=== PATIENT | male | born 1985 | race Caucasian/White ===

== ENCOUNTER 2016-12-01 16:20 | Emergency (ER) | payer SELFPAY ==
[~2016-12-01] VITALS: Ht 185.4 cm; Wt 93.0 kg
[2016-12-01] MEDS ORDERED: SODIUM CHLORIDE FLUSH 10ML SYR IVF ONE (16:30)
[2016-12-01] MEDS ORDERED: ASPIRIN 81 MG TABLET CHEW PO ONE (16:30)
[2016-12-01 16:59] VITALS: BP 138/78
[2016-12-01] MEDS ORDERED: PLEASE ENTER ALLERGIES MC SCH ×2 (17:00)
[2016-12-01 17:07] LABS: BLOOD UREA NITROGEN 23 mg/dL (7-18)
[2016-12-01 17:17] LABS: IS PT STATUS REG ER OR PRE ER? YES
== END 2016-12-01 18:18 | disposition home or self-care (01) ==
LOC: ED 18:17
DX: R07.89 Other chest pain (principal)
CPT/HCPCS: 36415; 71010; 80048; 82040; 84484; 85025; 93005

== ENCOUNTER → 2020-01-28 | Outpatient (CLI) | payer BC | END | disposition home or self-care (01) | LOC: CFH 14:44 | PROVIDERS: ATTEND Emergency Medicine | DX: M54.5 Low back pain (principal) | CPT/HCPCS: 76770 ==

== ENCOUNTER 2020-08-13 16:06 | Outpatient (CLI) | payer BC ==
[2020-08-13] MEDS ORDERED: OMNIPAQUE 350 MG/ML, 100ML BOTTLE ONE (16:30)
== END 2020-08-13 23:59 | disposition home or self-care (01) ==
LOC: RAD 16:06
PROVIDERS: ATTEND Family Medicine
DX: K40.30 Unilateral inguinal hernia, with obstruction, without gangrene, not specified as recurrent (principal); K82.0 Obstruction of gallbladder; N20.2 Calculus of kidney with calculus of ureter
CPT/HCPCS: 74177; Q9967

== ENCOUNTER 2020-08-20 12:21 | Day surgery (SDC) | payer BC ==
[~2020-08-20] VITALS: Ht 185.4 cm; Wt 100.9 kg
[2020-08-20] MEDS ORDERED: LIDOCAINE-MPF 1%, 2ML ONE (12:53)
[2020-08-20] MEDS ORDERED: HYDR2TAB29 PO (12:59)
[2020-08-20] MEDS ORDERED: IBUP-1623 PO (12:59)
[2020-08-20] MEDS ORDERED: CHLORHEXIDINE 15 ML UDC MM ONE (13:00)
[2020-08-20] MEDS ORDERED: LACTATED RINGERS 1,000 ML IV SCH (13:00)
[2020-08-20] MEDS ORDERED: LIDOCAINE-MPF 1%, 2ML INFIL ONE (13:00)
[2020-08-20 13:02] VITALS: BP 108/77
[2020-08-20] MEDS ORDERED: MIDAZOLAM 1 MG/ML, 2ML ONE (13:32)
[2020-08-20] MEDS ORDERED: FENTANYL PF 250 MCG/5ML ONE (13:32)
[2020-08-20] MEDS ORDERED: CEFAZOLIN 1,000 MG ONE ×2 (14:35)
[2020-08-20] MEDS ORDERED: DEXAMETHASONE 4 MG/ML, 1ML ONE ×2 (14:36)
[2020-08-20] MEDS ORDERED: PROPOFOL 10 MG/ML, 20ML ONE (14:36)
[2020-08-20] MEDS ORDERED: KETOROLAC 30 MG/1 ML ONE (14:47)
[2020-08-20] MEDS ORDERED: OMNIPAQUE 350 MG/ML, 50 ML BOTTLE ONE (14:49)
[2020-08-20] MEDS ORDERED: MEPERIDINE/PF 25MG/0.5ML IVPush PRN (15:00)
[2020-08-20] MEDS ORDERED: LABETALOL 5MG/ML, 20ML IV PRN (15:00)
[2020-08-20] MEDS ORDERED: ACETAMINOPHEN 325 MG TABLET PO PRN (15:00)
[2020-08-20] MEDS ORDERED: PROMETHAZINE 25 MG/ML, 1ML IVPush PRN (15:00)
[2020-08-20] MEDS ORDERED: HYDROmorphone 1 MG/ML, 1ML INJ IVPush PRN (15:00)
[2020-08-20] MEDS ORDERED: hydrALAzine 20 MG/ML, 1ML IV PRN (15:00)
[2020-08-20] MEDS ORDERED: OXYcodone 5 MG/5 ML ORAL.SOL UDC PO PRN (15:00)
[2020-08-20] MEDS ORDERED: ONDANSETRON 2MG/ML, 2ML IVPush PRN (15:00)
[2020-08-20] MEDS ORDERED: FENTANYL PF 100 MCG/2ML IV PRN (15:00)
[2020-08-20] MEDS ORDERED: OPIUM/BELLADONNA SUPP.RECT 16.2-30 MG ONE (15:50)
[2020-08-20] MEDS ORDERED: OPIUM/BELLADONNA SUPP.RECT 16.2-30 MG PR STA (15:55)
== END 2020-08-20 16:30 | disposition home or self-care (01) ==
LOC: OUT 12:21
PROVIDERS: ATTEND Urology
DX: N20.1 Calculus of ureter (principal); Z20.822 Contact with and (suspected) exposure to COVID-19; Z79.899 Other long term (current) drug therapy; Z87.442 Personal history of urinary calculi
CPT/HCPCS: 52356; 74420; 82360; 87635; 88300; C1726; C1758; C1769; C2617; J0690; J1100; J1885; J2250; J2704; J3010; J7120; Q9967

== ENCOUNTER 2020-08-26 12:16 | Emergency (ER) | payer BC ==
[~2020-08-26] VITALS: Ht 188 cm; Wt 101.7 kg
[~2020-08-26 12:16] MED LIST: HYDR2TAB29 PO; IBUP-1623 PO
--- NOTE | 2020-08-26 12:52 | NUR ---
FIRST CONTACT WITH PT. PT REPORTS GENITAL PAIN "IT HURTS IN MY LEFT TESTICLE AND MID-SHAFT OF MY PENIS" AND HEMATURIA S/P LITHOTRIPSY LAST MONDAY. STENT REMOVED MONDAY. TOLD BY UROLOGY TO COME TO ED IF HEMATURIA AND PAIN PERSIST TWO DAYS AFTER STENT REMOVAL. 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 +NAUSEA. DENIES VOMITING/FEVER. URINE COLLECTED AND SENT TO LAB; URINE APPEARS RED, NO SEDIMENT OR ANUSHKA BLOOD NOTED. BP/SPO2 MONITORING IN PLACE. VSS. SO AT BEDSIDE.
--- NOTE | 2020-08-26 13:15 | NUR ---
REPORT TO SALUD BARRY
[2020-08-26] MEDS ORDERED: HYDROmorphone 1 MG/ML, 1ML INJ ONE ×2 (13:25→15:02)
[2020-08-26] MEDS ORDERED: ONDANSETRON 2MG/ML, 2ML ONE (13:25)
[2020-08-26 13:28] LABS: MICROSCOPIC AUTO
[2020-08-26] MEDS ORDERED: SODIUM CHLORIDE FLUSH 10ML SYR IVF ONE (13:30)
[2020-08-26] MEDS ORDERED: ONDANSETRON 2MG/ML, 2ML IVPush ONE (13:30)
--- NOTE | 2020-08-26 13:30 | NUR ---
Pt to imaging. Addendum: 08/26/20 at 1330 by [email or web address] Pt to imaging. Stated he could wait for an IV and pain meds until after CT.
[2020-08-26 13:54] LABS: BASOPHILS % (AUTO) 0 % (0-1); EOSINOPHILS % (AUTO) 1 % (1-7); LYMPHOCYTES % (AUTO) 21 % (22-44); MEAN PLATELET VOLUME 7.4 fL (7.4-10.4); MONOCYTES % (AUTO) 12 % (2-9); NEUTROPHILS % (AUTO) 67 % (42-75); PLATELET COUNT 223 x10^3/uL (130-400); RED BLOOD COUNT 4.91 x10^6/uL (4.38-5.82); RED CELL DISTRIBUTION WIDTH 12.5 % (9.4-14.8)
[2020-08-26 13:57] LABS: MD NO
[2020-08-26 14:08] LABS: ALBUMIN 3.6 g/dL (3.4-5.0); ANION GAP 5 mmol/L (5-15); CALCIUM 8.6 mg/dL (8.5-10.1); CHLORIDE 111 mmol/L (98-107)
[2020-08-26 14:11] LABS: ALANINE AMINOTRANSFERASE 29 U/L (12-78); ALKALINE PHOSPHATASE 78 U/L (45-117); BILIRUBIN,TOTAL 0.5 mg/dL (0.2-1.0); CREATININE 1.38 mg/dL (0.7-1.3); TOTAL PROTEIN 7.3 g/dL (6.4-8.2)
[2020-08-26] MEDS: HYDROmorphone 1 MG/ML, 1ML INJ IVPush PRN ×2 (14:11→15:04)
--- NOTE | 2020-08-26 14:16 | NUR ---
Pt states instant relief from pain.
--- NOTE | 2020-08-26 14:24 | NUR ---
MD Sabillon back to bedside to update pt on POC.
[2020-08-26] MEDS ORDERED: KETOROLAC 30 MG/1 ML IVPush ONE (14:30)
[2020-08-26] MEDS ORDERED: KETOROLAC 30 MG/1 ML ONE (14:53)
[2020-08-26 15:23] VITALS: BP 117/70
== END 2020-08-26 15:25 | disposition home or self-care (01) ==
LOC: ED 13:38
DX: N30.01 Acute cystitis with hematuria (principal); N13.2 Hydronephrosis with renal and ureteral calculous obstruction; R10.9 Unspecified abdominal pain
CPT/HCPCS: 36415; 74176; 80053; 81001; 85025; 87086; 96374; 96375; 96376; 99284; J1170; J1885; J2405

== ENCOUNTER → 2021-02-04 | Outpatient (CLI) | payer BC | END | disposition home or self-care (01) | LOC: RAD 12:50 | PROVIDERS: ATTEND Physician Assistant | DX: N20.0 Calculus of kidney (principal) | CPT/HCPCS: 74176 ==